=== PATIENT | female | born 1960 ===

== ENCOUNTER 2018-02-03 20:42 | Emergency (ER) | payer OTHER, MEDICARE ==
[~2018-02-03 20:42] MED LIST: BENZTROPINE MESY2 M1 PO; DEPAKOTE ER500 M1 PO; DIVALPROEX SOD500 M3 PO; FLONASE ALLERG9.9 ML NAS; MECLIZINE HCL25 MG PO; TRAZODONE HCL100 M1 PO; ZOFRAN ODT4 M1 SL
--- NOTE | 2018-02-03 20:50 | ED GI/GU/ABDOMINAL COMPLAINT ---
History of Present Illness General Chief Complaint: Abdominal Pain/Flank Pain Stated Complaint: 08/13 EPIGASTRIC PAIN Source: patient, old records Exam Limitations: no limitations Vital Signs & Intake/Output Vital Signs & Intake/Output Vital Signs Date Time Temp Pulse Resp B/P B/P Pulse O2 O2 Flow FiO2 Mean Ox Delivery Rate 02/03 2230 98.0 82 18 120/60 95 Room Air 02/03 2057 Room Air 02/03 2045 98.9 84 18 122/59 94 Room Air Allergies Uncoded Allergies: ANTIPSYCOTICS (Severe, TONGUE SWELLING 09/02/17) Reconcile Medications Benztropine Mesylate 2 MG TABLET 1 TAB PO BID UNKNOWN (Reported) Divalproex Sodium (Divalproex Sodium ER) 500 MG TAB.ER.24H 1 TAB PO DAILY UNKNOWN (Reported) Divalproex Sodium (Depakote ER) 500 MG TAB.ER.24H 2 TAB PO QPM UNKNOWN ( Reported) Fluticasone Propionate (Flonase Allergy Relief) 50 MCG/ACTUATION SPRAY.SUSP 1 SPRAY TONY BID PRN CONGESTION Meclizine HCl 25 MG TABLET 1 TAB PO BIDPRN PRN DIZZY Ondansetron (Zofran Odt) 4 MG TAB.RAPDIS 1 TAB SL TID PRN NAUSEA Ondansetron (Zofran Odt) 4 MG TAB.RAPDIS 1 TAB SL TID PRN nausea Sucralfate (Carafate) 1 GRAM TABLET 1 TAB PO 4 TIMES/DAY gerd Trazodone HCl 100 MG TABLET 1 TAB PO QPM SLEEP (Reported) Triage Nurses Notes Reviewed? yes ? N Is pt currently ? No (N) Onset: Gradual Duration: intermittent, waxing and waning, x 2 months Timing: recent history Quality/Severity: aching, sharpness, twisting Severity Numbers: 7 Location: epigastric Radiation: no radiation Activities at Onset: none No Modifying Factors: none Associated Symptoms: nausea/vomiting, constipation HPI: 57 year old female h/o gerd, grover fundoplication rheumatoid arthritis on prednisone for the past 2 months presents brought in by ambulance complaining of epigastric pain x 2 months associated with nausea vomiting intermittently. The pain is worse with eating. She's been taking Mylanta and Tums without improvement. She denies alcohol use. No chest pain shortness of breath fever chills. Pain is described as sharp twisting intermittent in nature. No radiation the pain into her back or chest. She denies hematemesis black or bloody stools she also reports intermittent constipation (Jerad Gooden) Past History Medical History Any Pertinent Medical History? see below for history Neurological: TARDIVE DYSKINESIA Gastrointestinal: GERD Musculoskeletal: osteoarthritis, The patient reports rheumatoid arthritis in bilateral shoulders Psychiatric: depression Surgical History Surgical History: grover fundoplication Psychosocial History Who do you live with Other (see notes) What is your primary language [place]ian Family History Hx Contributory? No (Jerad Gooden) Review of Systems Review of Systems Constitutional: Reports: see HPI. Comments Review of systems: See HPI, All other systems negative. Constitutional, no chills no fever, HEENT: no sore throat no congestion, no ear pain Cardiovascular: No chest pain , no palpitation Skin: no rashes, no change in skin Respiratory: No dyspnea no cough no sputum GI: nausea o vomiting, no diarrhea, (+) constipation : No dysuria No hematuria, no frequency Muscle skeletal: No joint pain, no back pain, no neck pain, NEURO: NO HEADACHE Heme/endocrine: No bruising no bleeding Immunology: No lymphadenopathy (Jerad Gooden) Physical Exam Physical Exam General Appearance: well developed/nourished, no apparent distress, alert Gastrointestinal: soft, non-tender Comments: Well-developed well-nourished person in no acute distress HEENT: Normal EENT exam; PERRL, EOMI,. HEAD is atraumatic. moist mucous membranes. Neck: Supple,, normal range of motion Back: Nontender, no CVA tenderness. Full range of motion Cardiovascular: Regular rate and rhythms no murmur Respiratory: Chest nontender.There were no bony deformities, no asymmetry. No respiratory distress. Patient speaking in full complete sentences. Breath sounds clear to auscultation bilaterally: NO W/R/R Abdomen: Soft, nontender nondistended, no appreciable organomegaly. Normal bowel sounds. No rebound/guarding No ascites. Extremity: No edema, full range of motion of extremities Neuro: Alert oriented x3, motor sensory normal,. There were no obvious focal neurologic abnormalities. Skin: No appreciable rash on exposed skin, skin is warm and dry. Psych: Mood and affect is normal, memory and judgment is normal. Core Measures ACS in differential dx? Yes Sepsis Present: No Sepsis Focused Exam Completed? No (Ashley CANTU,Jerad) Progress Differential Diagnosis: AMI, appendicitis, biliary colic, colon cancer, cholecystitis, diverticulitis, gastritis, hepatitis, hernia, inflamm bowel dis, PUD/GERD, perforated viscous, SBO Plan of Care: Orders Procedure Date/time Status EKG 02/03 2126 Active TROPONIN LEVEL 02/03 2109 Complete LIPASE 02/03 2109 Complete COMPREHENSIVE METABOLIC PANEL 02/03 2109 Complete CBC WITHOUT DIFFERENTIAL 02/03 2109 Complete AMYLASE 02/03 2109 Complete Laboratory Tests 02/03/182124: Anion Gap 7, Estimated GFR > 60, BUN/Creatinine Ratio 30.0 H, Glucose 112 H, Calcium 9.0, Total Bilirubin 0.5, AST 13 L, ALT 19, Alkaline Phosphatase 46, Troponin I < 0.01, Total Protein 6.3, Albumin 3.5, Globulin 2.8, Albumin/ Globulin Ratio 1.3, Amylase 47, Lipase 124, CBC w Diff NO MAN DIFF REQ, RBC 3.59 L, MCV 101.1 H, MCH 33.7 H, MCHC 33.3, RDW 14.6 H, MPV 9.4, Gran % 32.8 L, Lymphocytes % 60.6 H, Monocytes % 5.3, Eosinophils % 0.5, Basophils % 0.8, Absolute Granulocytes 2.5, Absolute Lymphocytes 4.6 H, Absolute Monocytes 0.4, Absolute Eosinophils 0, Absolute Basophils 0.1 Labs ordered old records reviewed CAT scan ordered patient make you Delgado Garcia 02/03/2018 10:12:32 PM was called to the patient's room after her EKG she states she feels improved with the Toradol and does not want to stay for the CAT scan and remaining blood work that is pending I attempted to reason with the patient that she is here in the blood work is been sent however she is requesting to go home now. Patient is requesting kyaw Henriquez I discussed with her plan and care I discussed with her that if everything with the CAT scan and labs were GOING to send her home with Carafate which she states she's had before which has helped. 02/03/2018 10:34:17 PM I discussed with the patient at length all her lab results and copy was provided to her she is scheduled to follow up with GI tomorrow case discussed with Dr. Calle agrees with plan the patient again I attempted to reason with her to get the CAT scan performed which she is again refusing stating she feels significantly improved and would like to go home. Patient tolerated by mouth challenge with kyaw jeremias without any nausea vomiting she denies any difficulty with swallowing. Return precautions were discussed at leads Initial ED EKG: normal QRS complex, normal sinus rhythm, nonspecific ST T wave chg (Jerad Gooden) Departure Departure Disposition: LEFT AGAINST MEDICAL ADVICE Condition: Stable Clinical Impression Primary Impression: Gastritis Secondary Impressions: Abdominal pain Referrals: Parminder Nance MD (PCP/Family) Additional Instructions: Follow-up with the reducing salon attendant as scheduled tomorrow as well as your primary care physician this week. Carafate as discussed. Zofran for nausea. Return with any concerns Departure Forms: Customer Survey General Discharge Information Prescriptions: Current Visit Scripts Sucralfate (Carafate) 1 TAB PO 4 TIMES/DAY #120 TAB Ondansetron (Zofran Odt) 1 TAB SL TID PRN nausea #10 TAB (Jerad Gooden) PA/SEWING MACHINE TESTER Co-Sign Statement Statement: ED Attending supervision documentation- [] I saw and evaluated the patient. I have also reviewed all the pertinent lab results and diagnostic results. I agree with the findings and the plan of care as documented in the PA's/SEWING MACHINE TESTER's documentation. [X] I have reviewed the ED Record and agree with the PA's/SEWING MACHINE TESTER's documentation. [] Additions or exceptions (if any) to the PAs/SEWING MACHINE TESTER's note and plan are summarized below: [] (Alva QUINTERO,Audie Buck)
[2018-02-03 21:35] LABS: ABSOLUTE BASOPHIL COUNT 0.1 /CUMM (0.0-0.2); ABSOLUTE EOSINOPHIL COUNT 0 /CUMM (0.0-0.7); ABSOLUTE GRANULOCYTE CT 2.5 /CUMM (1.4-6.5); ABSOLUTE LYMPH COUNT 4.6 /CUMM (1.2-3.4); ABSOLUTE MONOCYTE COUNT 0.4 /CUMM (0.10-0.60); BASOPHIL % 0.8 % (0.0-2.0); EOSINOPHIL % 0.5 % (0-5); HEMATOCRIT 36.3 % (37-47); MEAN CORPUSCULAR HGB 33.7 PG (27.0-31.0); MEAN CORPUSCULAR HGB CONC 33.3 G/DL (33.0-37.0); MEAN CORPUSCULAR VOLUME 101.1 FL (81.0-99.0); MEAN PLATELET VOLUME 9.4 FL (7.4-10.4); PLATELET COUNT 220 /CUMM (130-400); RBC DISTRIBUTION WIDTH 14.6 % (11.5-14.5); RED BLOOD CELL CT 3.59 /CUMM (4.20-5.40); WHITE BLOOD CELL COUNT 7.6 /CUMM (4.8-10.8)
[2018-02-03 21:36] LABS: GRANULOCYTE % 32.8 % (42.2-75.2)
[2018-02-03] MEDS ORDERED: ZOFRAN ODT4 M1 SL (22:15)
[2018-02-03] MEDS ORDERED: CARAFATE1 G1 PO (22:15)
[2018-02-03 22:30] VITALS: BP 120/60
== END 2018-02-03 22:46 | disposition left against medical advice (07) ==
LOC: ERH 20:42
PROVIDERS: Physician Assistant Medical
DX: K29.70 Gastritis, unspecified, without bleeding (principal)
CPT/HCPCS: J1885; J2405